=== PATIENT | female | born 1995 | race American Indian/Alaskan Native ===

== ENCOUNTER 2017-05-20 15:04 | Emergency (ER) | payer BC, OTHER ==
[~2017-05-20] VITALS: Ht 172.7 cm; Wt 63.5 kg
[~2017-05-20 15:04] MED LIST: ALEVE220 MG PO; PRENATAL VITAM1 EACH PO
[2017-05-20] MEDS ORDERED: NORCO 5-325 TA1 EACH PO (16:34)
== END 2017-05-20 17:07 | disposition home or self-care (01) ==
LOC: ED 15:04
DX: S82.851A Displaced trimalleolar fracture of right lower leg, initial encounter for closed fracture (principal); W01.0XXA Fall on same level from slipping, tripping and stumbling without subsequent striking against object, initial encounter
CPT/HCPCS: 73610; 99283

== ENCOUNTER 2017-05-26 08:00 | Day surgery (SDC) | payer BC, OTHER ==
[~2017-05-26] VITALS: Ht 172.7 cm; Wt 63.5 kg
[~2017-05-26 08:00] MED LIST changes: +NORCO 5-325 TA1 EACH PO
== END 2017-05-26 13:58 | disposition home or self-care (01) ==
LOC: OPS 08:00 → DS 08:00 → OPS 08:45 → DS 08:45 → OPS 13:58
PROVIDERS: Specialist
PROC: 0QSJ0ZZ Reposition Right Fibula, Open Approach (ICD-10-PCS; principal; 2017-05-26 08:45)
DX: S82.841A Displaced bimalleolar fracture of right lower leg, initial encounter for closed fracture (principal); Y92.828 Other wilderness area as the place of occurrence of the external cause; Z98.890 Other specified postprocedural states
CPT/HCPCS: 01480; 64445; 64447; 64450; 73600; 76942; C1713; J0690; J1100; J1885; J2250; J2405; J2704; J2765; J2795; J3010; J7120

== ENCOUNTER 2021-02-12 19:14 | Emergency (ER) | payer OTHER ==
[~2021-02-12] VITALS: Ht 172.7 cm; Wt 65.0 kg
[2021-02-12] MEDS ORDERED: FLUCONAZOLE150 MG PO (22:33)
--- NOTE | 2021-02-13 09:32 | EKG ---
[facility] [address] [facility] [place] [address] Signed Sinus rhythm with short MT RSR' or QR pattern in V1 suggests right ventricular conduction delay Borderline ECG No previous ECGs available Confirmed by SOTO LR MD ([id number]) on 02/13/2021 9:32:44 AM Electronically Signed By: SOTO LR MD 02/13/21 0932 PATIENT NAME: EM CARDOSO Electrocardiogram DATE OF : [birth year] PHYSICIAN: SOTO LR MD REPORT #: [id number] REPORT IS CONFIDENTIAL AND NOT TO BE RELEASED WITHOUT AUTHORIZATION
== END 2021-02-12 22:49 | disposition home or self-care (01) ==
LOC: ED 19:14
DX: B37.3 Candidiasis of vulva and vagina (principal)
CPT/HCPCS: 80053; 81001; 83690; 84703; 85025; 93005; 93010; 99284-25

== ENCOUNTER 2024-12-21 15:20 | Inpatient (IN) | payer BC, OTHER ==
[~2024-12-21 15:20] MED LIST changes: +FLUCONAZOLE150 MG PO
[2024-12-22] MEDS ORDERED: AZITHROMYCIN/DEXTROSE 500 MG/250 ML PIGGYBACK IV STA (23:41)
[2024-12-22] MEDS ORDERED: CEFAZOLIN SODIUM 2 GM/20 ML SYR IV SCH (23:44)
[2024-12-22] MEDS ORDERED: LACTATED RINGER'S 1,000 ML IV PRN (23:45)
[2024-12-22] MEDS ORDERED: SOD+POT BICARB/CITRIC ACID 2 EA TABLET.EFF PO ONE (23:45)
[2024-12-22 23:51] LABS: HEMATOCRIT 32.5 % (35.0-50.0); HEMOGLOBIN 10.8 g/dL (12.0-18.0); MCH 27.9 (27-36); MCHC 33.4 g/dl (30-36); MCV 83.5 fl (81-99); RBC 3.89 M/ul (4.3-5.7)
[2024-12-23] MEDS ORDERED: LIDOCAINE HCL 2% 5 ML SDV ONE (00:13)
[2024-12-23] MEDS ORDERED: ePHEDrine sulfate 50 MG/ML AMP ONE (00:13)
[2024-12-23] MEDS ORDERED: SODIUM CHLORIDE 0.9% 20 ML IV ONE (00:13)
[2024-12-23] MEDS ORDERED: fentaNYL citrate 100 MCG/2 ML VIAL ONE (00:13)
[2024-12-23] MEDS ORDERED: BUPIVACAINE 0.75% IN DEXTROSE 2 ML AMP ONE (00:13)
[2024-12-23 00:20] LABS: ABO O; RH POSITIVE
[2024-12-23 00:21] LABS: ANTIBODY SCREEN NEGATIVE
[2024-12-23] MEDS ORDERED: OXYTOCIN 10 UNITS/ML VIAL ONE (00:29)
[2024-12-23] MEDS ORDERED: ondansetron HCL 4 MG/2 ML VIAL ONE (00:46)
[2024-12-23] MEDS ORDERED: KETOROLAC TROMETHAMINE 30 MG/ML VIAL ONE (00:46)
[2024-12-23] MEDS ORDERED: DEXAMETHASONE SOD PHOS 4 MG/ML VIAL ONE ×2 (00:46→00:47)
[2024-12-23] MEDS ORDERED: SODIUM CHLORIDE 0.9% 60 ML IV ONE (00:47)
[2024-12-23] MEDS ORDERED: Ropivacaine HCl 0.5% 30 ML VIAL ONE (00:47)
[2024-12-23] MEDS ORDERED: dexmedeTOMIDine HCl 200 MCG/2 ML VIAL ONE (00:47)
[2024-12-23 00:53] LABS: AMPHETAMINES, URINE NEGATIVE (NEGATIVE); BARBITURATES, URINE NEGATIVE (NEGATIVE); BENZODIAZEPINE, URINE NEGATIVE (NEGATIVE); BUPRENORPHINE, URINE NEGATIVE (NEGATIVE); CANNABINOID, URINE POSITIVE (NEGATIVE); COCAINE, URINE NEGATIVE (NEGATIVE); ECSTASY, URINE NEGATIVE (NEGATIVE); FENTANYL, URINE NEGATIVE (NEGATIVE); METHADONE, URINE NEGATIVE (NEGATIVE); OPIATES, URINE NEGATIVE (NEGATIVE); OXYCODONE, URINE NEGATIVE (NEGATIVE); PHENCYCLIDINE, URINE NEGATIVE (NEGATIVE)
[2024-12-23] MEDS ORDERED: ACETAMINOPHEN 1,000 MG/100 ML VIAL ONE (00:56)
[2024-12-23] MEDS ORDERED: LACTATED RINGER'S 1,000 ML IV ONE (00:57)
[2024-12-23] MEDS ORDERED: PROMETHAZINE HCL 25 MG TAB PO PRN (01:30)
[2024-12-23] MEDS ORDERED: OXYCODONE HCL 5 MG TAB PO PRN (01:30)
[2024-12-23] MEDS ORDERED: PROMETHAZINE HCL 25 MG SUPP PR PRN (01:30)
[2024-12-23] MEDS ORDERED: METOCLOPRAMIDE HCL 10 MG/2 ML SDV IV PRN (01:30)
[2024-12-23] MEDS ORDERED: ondansetron HCL 4 MG/2 ML VIAL IV PRN ×2 (01:30→01:45)
[2024-12-23] MEDS ORDERED: bisacodyL 10 MG SUPP PR PRN (01:30)
[2024-12-23] MEDS ORDERED: PROCHLORPERAZINE EDISYLATE 10 MG/2 ML VIAL IV PRN (01:30)
[2024-12-23] MEDS ORDERED: OXYCODONE/APAP 5/325 TAB PO PRN (01:30)
[2024-12-23] MEDS ORDERED: OXYTOCIN/0.9 % SODIUM CHLORIDE 500 ML IV SCH (01:30)
[2024-12-23] MEDS ORDERED: HYDROCODONE/ACETA 5/325 TAB PO PRN (01:30)
[2024-12-23] MEDS ORDERED: LACTATED RINGER'S 1,000 ML IV SCH ×2 (01:36→05:00)
[2024-12-23] MEDS ORDERED: NALOXONE HCL 0.4 MG SYR IV PRN ×2 (01:45)
[2024-12-23] MEDS ORDERED: fentaNYL citrate 50 MCG/ML SDV IV PRN (01:45)
[2024-12-23] MEDS ORDERED: IBLOOD GLUCOSE TEST STRIP 1 EA TEST VI PRN (01:45)
[2024-12-23] MEDS ORDERED: diphenhydrAMINE HCL 50 MG/ML VIAL IV PRN (01:45)
[2024-12-23] MEDS ORDERED: KETOROLAC TROMETHAMINE 30 MG/ML VIAL IV PRN (01:45)
[2024-12-23] MEDS ORDERED: HYDROmorphone HCL 1 MG/ML SYR IV PRN (01:45)
[2024-12-23] MEDS ORDERED: MORPHINE SULFATE 4 MG/ML VIAL IV PRN (01:45)
[2024-12-23] MEDS ORDERED: KETOROLAC TROMETHAMINE 30 MG/ML VIAL IV SCH ×2 (02:00→13:00)
--- NOTE | 2024-12-23 02:04 | NUR ---
12/23/24 0204 ASHYTNALCIDES 0131 PT ARRIVED TO [facility] RM 104 VIA STREACHER. REPORT TAKEN FROM ROSIBEL SOMERS. PT SITTING SEMI FOWLERS, PT AWAKE AND ORIENTED. ALL MONITORS ATTACHED. VITALS TAKEN. SCDS IN PLACE AND ON. PT REPORTS NO PAIN OR NAUSEA AT THIS TIME. PT HAS LR WITH 20 UNITS OF PITOCIN RUNNING VIA IV IN L HAND. PT HAS CARLIN IN PLACE AND DRAINING CLEAR YELLOW URINE. SPINAL AT T5. FAMILY IN ROOM. 0135 FUNDAL MASSAGE DONE, NO DRAINGE AT THIS TIME. FUNDUS MIDLINE AND FIRM AND 2 BELOW THE UMBILICUS. 0140 FUNDAL MASSAGE DONE, LIGHT RED DRAINAGE AT THIS TIME. FUNDUS MIDLINE AND FIRM, TWO BELOW THE UMBILICUS. BABY AT BREAST WITH [facility] RN AT BEDSIDE. PT SIGNIFICANT OTHER AT BEDSIDE. PT SITTING IN HIGH FOWLERS AT THIS TIME. 0145 FUNDAL MASSAGE DONE, FUNDUS FIRM AND MIDLINE, 2 BELOW THE UMBILICUS. PT REPORTING NO PAIN OR NAUSEA AT THIS TIME. BABY AT BREAST. [facility] RN IN ROOM. 0150 SPINAL CHECK DONE, SPINAL AT T4. 50MLS OF CLEAR YELLOW URINE REMOVED FROM CATHETER BAG. 0153 CARE TRANSFERRED TO [facility] GEOFFREY SCHWARTZ AT THIS TIME. REPORT GIVEN. PT REPORTING NO PAIN OR NAUSEA AT THIS TIME. BED IS LOW AND LOCKED, AND BED IS PLUGGED IN. FAMILY AND [facility] RN AT BEDSIDE. LR WITH 20 UNITS OF PITOCIN RUNNING IN IV IN L HAND. SCDS ARE ON AND RUNNING. PT AND FAMILY HAVE NO QUESTIONS AT THIS TIME. CARLIN CATHETER IN PLACE AND DRAINING.
[2024-12-23 03:51] VITALS: BP 118/65
[2024-12-23 05:35] LABS: HEMATOCRIT 30.8 % (35.0-50.0); HEMOGLOBIN 10.3 g/dL (12.0-18.0); MCH 27.8 (27-36); MCHC 33.5 g/dl (30-36); MCV 82.9 fl (81-99); RBC 3.72 M/ul (4.3-5.7); RDW 15.8 (10.5-15.0)
[2024-12-23] MEDS ORDERED: SIMETHICONE 80 MG CHEW PO PRN (08:45)
[2024-12-23] MEDS ORDERED: ACETAMINOPHEN 500 MG TAB PO PRN (08:45)
[2024-12-23] MEDS ORDERED: SENNOSIDES/DOCUSATE 1 EA TAB PO SCH (09:00)
[2024-12-23] MEDS ORDERED: ENOXAPARIN SODIUM 40 MG/0.4 ML SYR SUB-Q SCH (09:00)
[2024-12-24] MEDS ORDERED: IBUPROFEN 600 MG TAB PO SCH (02:00)
--- NOTE | 2024-12-24 12:45 | PR ---
[facility] [address] [place], [place] [address] Signed PP Progress Notes Datetime Report Generated by CPN: 12/24/2024 12:45 SUBJECTIVE: [id number] Pain: Within Normal Limits Nausea/Vomiting: Denies Flatus: Yes Bowel Movement: No Vital Signs: [id number] Vital Signs: Reviewed; Within Normal Limits EXAM: Ongoing Cardiovascular: Normal Respiratory: Normal Abdomen/Uterus: Normal Lochia: Normal Vulva/Perineum: Not Done Breasts: Not Done CVA Tenderness: Normal Extremities: Normal Incision: Normal Progress: Normal Exam Comments: Fundus firm U-2 nontender. Incision well healing w/ han in place IMPRESSION/PLAN/PROCEDURES: [id number] Impression: Normal Progression Plan: Discharge Progress Notes: Pt seen and examined. Doing well. Ambulating, voiding, and tolerating full diet. Pain and lochia minimal. well. No concerns. Desires discharge home today. Reviewed d/c instruction and medication in detail. All questions answered. Undecided on pp contraception. F/U 3 days for staple removal at [facility]. Signing Physician: Marcus Sullivan DO Copies: ~ *Electronically Signed* 12/24/24 5042 MARCUS SULLIVAN (SHANAE) DO PATIENT NAME: EM CARDOSO PROGRESS NOTE DATE OF : [birth year] PHYSICIAN: MARCUS SULLIVAN (JD) DO RPT #: [id number] REPORT IS CONFIDENTIAL AND NOT TO BE RELEASED WITHOUT AUTHORIZATION
--- NOTE | 2024-12-25 01:43 | OR ---
[facility] [address] [place], [place] [address] Signed DATE OF OPERATION: 12/23/2024 SURGEON: Marcus Sullivan DO PREOPERATIVE DIAGNOSES: 1. Intrauterine at 39 weeks gestation. 2. History of prior section x2. POSTOPERATIVE DIAGNOSES: 1. Intrauterine at 39 weeks gestation. 2. History of prior section x2. SURGERY PERFORMED: Repeat low transverse section. HINGING MACHINE OPERATOR: None. ANESTHESIA: Spinal with postoperative TAP block. ESTIMATED BLOOD LOSS: 500 mL. DRAINS: Wynn to gravity. COMPLICATIONS: None. FINDINGS: Delivery of viable female , 6 pounds 18.8 ounces with Apgars of 9 and 9. Normal uterus, tubes, and ovaries. Scant omental and peritoneal adhesions. INDICATIONS: Ms. Cardoso is a very pleasant 29-year-old G3, P2, with intrauterine at 39 weeks gestation, who presented with spontaneous rupture of membranes. The patient was consented for repeat low transverse section. She declined bilateral salpingectomy. Risks, benefits, and alternatives were discussed in detail with the patient. The patient understands and wished to proceed with the procedure. Electronically Signed By: MARCUS SULLIVAN DO (JD) 12/25/24 0143 PATIENT NAME: EM CARDOSO OPERATIVE REPORT DATE OF : [birth year] REPORT #: [id number] PHYSICIAN: MARCUS SULLIVAN DO (JD) PCP: MARCUS LACKEY MD REPORT IS CONFIDENTIAL AND NOT TO BE RELEASED WITHOUT AUTHORIZATION [facility] [address] [place], [place] [address] Signed DESCRIPTION OF PROCEDURE: The patient was taken to the OR. A time-out was performed to confirm correct patient and correct procedure. Spinal anesthesia was adequately established. The patient was prepped and draped in the supine position with a bump on her right hip. Wynn catheter was inserted. The patient received Ancef 2 g and azithromycin 500 mg IV preoperatively. Once spinal anesthesia was noted to be adequate, a Pfannenstiel skin incision was made through the prior scar and carried down to the fascia. Fascia was nicked in the midline and fascial incision extended bilaterally using curved Moulton scissors. Fascia was grasped with Jerrod's, elevated, and the underlying rectus muscle dissected off bluntly and sharply. The rectus was divided bluntly in the midline and the peritoneum was incised sharply. Peritoneal incision was extended cephalad and caudad using blunt and sharp dissection. Scant omental adhesion was noted at the superior edge of the peritoneal incision. This was brought down with Bovie electrocautery with hemostasis appreciated. The peritoneal adhesions to the anterior uterine surface were noted, but these were scanty and were brought down with creation of a bladder flap with Metzenbaum scissors without difficulty. Jae self retractor was placed and the lower uterine segment was identified. Hysterotomy was performed using a surgical scalpel. Amniotic fluid was noted to be clear. Hysterotomy was extended bilaterally using blunt dissection. The surgeon's hand was placed in the uterine cavity and the head elevated and delivered in the SALLY position. No nuchal cord. The was delivered with the assistance of fundal pressure without difficulty. was vigorous and cried. Cord was doubly clamped, cut, and cord blood obtained for routine analysis. The placenta was expressed, intact with a centrally inserted three-vessel cord. Post Pitocin was administered per protocol and bleeding quickly resolved. The uterine cavity was cleared of any remaining products of conception or clot and then the hysterotomy was repaired in two layers of 0 Monocryl, the first being a running locked layer and the 2nd being a running imbricating layer in a vertical manner. Excellent hemostasis was appreciated. The pelvis was irrigated and found to be hemostatic. Again, normal uterus, tubes, and ovaries were appreciated. Jose was applied to the anterior surface of the uterus given creation of bladder flap. The peritoneum was then reapproximated using 2-0 Vicryl in a running nonlocked manner. Rectus was made hemostatic with judicious use of Bovie electrocautery and was irrigated. The rectus was loosely plicated in the midline with three interrupted sutures of 0 Vicryl. Remainder of Jose was applied to the rectus sheath. Fascia was then reapproximated using 0 Vicryl in a running nonlocked manner. Subcu was irrigated and made hemostatic with judicious use of Bovie electrocautery. Subcu was then loosely reapproximated using 3-0 Vicryl in a running nonlocked manner. Skin was reapproximated using surgical han. The uterus was Crede'd for scant amount of blood and the patient remained in the OR for postoperative TAP blocks. Sponge, needle, and instrument counts correct x2 at the end the procedure. Electronically Signed By: MARCUS WANG) DO JERE 12/25/24 0143 PATIENT NAME: EM CARDOSO OPERATIVE REPORT DATE OF : [birth year] REPORT #: [id number] PHYSICIAN: MARCUS SULLIVAN) PCP: MARCUS LACKEY MD REPORT IS CONFIDENTIAL AND NOT TO BE RELEASED WITHOUT AUTHORIZATION [address] [address] Signed Marcus Sullvian DO JJAJA/MODL /[id number] Copies: ~ Electronically Signed By: MARCUS WANG) DO JERE 12/25/24 0143 PATIENT NAME: EM CARDOSO OPERATIVE REPORT DATE OF : [birth year] REPORT #: [id number] PHYSICIAN: MARCUS SULLIVAN DO (JD) PCP: MARCUS LACKEY MD REPORT IS CONFIDENTIAL AND NOT TO BE RELEASED WITHOUT AUTHORIZATION
== END 2024-12-24 15:00 | disposition home or self-care (01) | DRG 788 ==
LOC: FBC 12-22 23:27
PROVIDERS: ADMIT Obstetrics & Gynecology; ATTEND Obstetrics & Gynecology
PROC: 10D00Z1 Extraction of Products of Conception, Low, Open Approach (ICD-10-PCS; principal; 2024-12-23 07:30)
DX: O34.211 Maternal care for low transverse scar from previous cesarean delivery (principal); O42.02 Full-term premature rupture of membranes, onset of labor within 24 hours of rupture; Z3A.39 39 weeks gestation of pregnancy; Z37.0 Single live birth; Z87.891 Personal history of nicotine dependence
CPT/HCPCS: 01961; 36415; 64488; 76937; 76942; 80307; 85027; 86850; 86900; 86901; A9270; J0131; J0456; J0690; J1100; J1650; J1885; J2003; J2405; J2590; J2795; J3010; J7121